=== PATIENT | female | born 1940 | race Caucasian/White ===

== ENCOUNTER 2018-02-03 19:12 | Emergency (ER) | payer OTHER, MEDICARE ==
[~2018-02-03] VITALS: Ht 160 cm; Wt 81.6 kg
[~2018-02-03 19:12] MED LIST: ALEVE220 MG PO; ASPIR 8181 MG PO; BENTYL20 MG PO; CIPRO 500MG TA500 MG PO; COLACE100 MG PO; CYCLOBENZAPRINE5 M2 PO; DIOVAN320 M1 PO; IBUPROFEN600 M1 PO; KEFLEX250 M1 PO; LEVOTHYROXINE0.15 M1 PO; MAGNESIUM400 M1 PO; OCUVITE ADULT 51 SGL PO; PEPCID20 M1 PO; POTASSIUM CHLO20 ME2 PO; SPIRONOLACTONE50 M1 PO; TRAMADOL HCL50 M1 PO; VALIUM5 M2 PO; VALSARTAN AND H1 TA1 PO; VALSARTAN80 M1 PO; VICODIN 5-3001 EACH PO; VICODIN 500 MG-1 TAB PO; VICODIN5-300 PO; VITAMIN B11000 MCG/M IM; VITAMIN D2000 UNI1 PO
--- NOTE | 2018-02-03 20:04 | ED GI/GU/ABDOMINAL COMPLAINT ---
History of Present Illness General Chief Complaint: Female Urogenital Problems Stated Complaint: "I HAVE UTI, OR BLADDER INFECTION" Source: patient, old records Exam Limitations: no limitations Vital Signs & Intake/Output Vital Signs & Intake/Output Vital Signs Date Time Temp Pulse Resp B/P B/P Pulse O2 O2 Flow FiO2 Mean Ox Delivery Rate 02/03 2109 98.9 80 18 146/76 97 Room Air 02/03 1929 99.9 99 20 164/83 95 Room Air Allergies Coded Allergies: Sulfa (Sulfonamide Antibiotics) (RASH 01/06/16) chlordiazepoxide (From Librium) (RASH TO PALMS 01/06/16) Uncoded Allergies: MRI (Intermediate, METAL STENTS 09/05/14) Reconcile Medications Amoxicillin 250 MG CAPSULE 1 CAP PO TID URINE INFECTION Aspirin (Ecotrin) 81 MG TABLET.DR 1 TAB PO DAILY HEART HEALTH (Reported) Cholecalciferol (Vitamin D3) (Vitamin D) (Unknown Strength) TABLET (Unknown Dose) PO DAILY SUPPLEMENT (Reported) CYANOCOBALAMIN (VITAMIN B-12) (Cyanocobalamin Injection) 1,000 MCG/ML VIAL 1 ML IM Q30D LOW VIT B12 (Reported) Cyclobenzaprine HCl 5 MG TABLET 1 TAB PO QPM PRN MUSCLE SPASMS (Reported) Docusate Sodium (Colace) 100 MG CAPSULE 1 CAP PO PRN CONSTIPATION (Reported) Levothyroxine Sodium 0.15 MG TAB 1 TAB PO DAILY AC HYPOTHYROID (Reported) Spironolactone 50 MG TABLET 1 TAB PO DAILY DIURETIC (Reported) Tramadol HCl 50 MG TABLET 1 TAB PO DAILY PRN PAIN (Reported) Valsartan 80 MG TABLET 1 TAB PO DAILY BP (Reported) VIT C/VIT E/LUTEIN/MIN/OMEGA-3 (Ocuvite Softgel) 150 MG-30 UNIT-5 MG-150 MG CAPSULE 1 SGL PO DAILY SUPPLEMENT (Reported) Triage Note: PT TO TRIAGE C/O DYSURIA, FREQUENCY X1 DAY. PER PT HX OF UTI. LOW GRADE TEMP IN TRIAGE 99.9. AWARE OF NEED FOR URINE SAMPLE. Triage Nurses Notes Reviewed? yes ? N Is pt currently ? No HPI: 2 days ago patient noticed that she was having right flank pain. The pain is crampy in nature. There is no radiation. She rates the pain as mild on the pain scale. The pain subsequently went away. Today she had an episode of urinary urgency and hematuria. Patient just kind of feels weak and fatigued. There are no fevers or chills. There is no nausea or vomiting. Past History Travel History Traveled to [place] past 21 day No Medical History Any Pertinent Medical History? see below for history Neurological: NONE EENT: NONE Cardiovascular: CHF, hypertension, 2 STENTS Respiratory: NONE Gastrointestinal: NONE Hepatic: NONE Renal: NONE Musculoskeletal: NONE Psychiatric: NONE Endocrine: hypothyroidism Blood Disorders: NONE Cancer(s): NONE Surgical History Surgical History: non-contributory Psychosocial History What is your primary language Luxembourgish Tobacco Use: Never used ETOH Use: denies use Illicit Drug Use: denies illicit drug use Family History Hx Contributory? No Review of Systems Review of Systems Constitutional: Reports: see HPI, weakness. EENTM: Reports: no symptoms. Respiratory: Reports: no symptoms. Cardiovascular: Reports: no symptoms. GI: Reports: no symptoms. Genitourinary: Reports: see HPI, hematuria, urgency. Musculoskeletal: Reports: see HPI, back pain. Skin: Reports: no symptoms. Neurological/Psychological: Reports: no symptoms. Hematologic/Endocrine: Reports: no symptoms. Immunologic/Allergic: Reports: no symptoms. All Other Systems: Reviewed and Negative Physical Exam Physical Exam General Appearance: well developed/nourished, alert, awake, mild distress Head: atraumatic, normal appearance Eyes: Bilateral: PERRL, EOMI. Ears, Nose, Throat, Mouth: hearing grossly normal, moist mucous membrane Neck: normal inspection, supple, full range of motion Respiratory: normal breath sounds, chest non-tender, no respiratory distress, lungs clear Cardiovascular: regular rate/rhythm, normal peripheral pulses Gastrointestinal: normal bowel sounds, soft, non-tender, no organomegaly Back: normal inspection, normal range of motion, NO CVA TENDERNESS Extremities: normal range of motion Neurologic/Psych: no motor/sensory deficits, awake, alert, oriented x 3, normal gait, normal mood/affect Skin: intact, normal color, warm/dry Core Measures ACS in differential dx? No Sepsis Present: No Sepsis Focused Exam Completed? No Progress Differential Diagnosis: UTI/pyelo Plan of Care: Orders Procedure Date/time Status CULTURE,URINE 02/03 2055 Active Add-on Test (ER Only) 02/03 2042 Active COMPREHENSIVE METABOLIC PANEL 02/04 2004 Complete CBC WITHOUT DIFFERENTIAL 02/04 2004 Complete URINALYSIS 02/03 1915 Complete Laboratory Tests 02/03/18 2014: Anion Gap 11, Estimated GFR > 60, BUN/Creatinine Ratio 25.7 H, Glucose 116 H, Calcium 10.2, Total Bilirubin 0.5, AST 17, ALT 32, Alkaline Phosphatase 96, Total Protein 7.3, Albumin 3.9, Globulin 3.4, Albumin/Globulin Ratio 1.1, CBC w Diff NO MAN DIFF REQ, RBC 4.22, MCV 90.4, MCH 29.9, MCHC 33.1, RDW 14.0, MPV 7.9 , Gran % 68.9, Lymphocytes % 20.7, Monocytes % 6.9, Eosinophils % 2.3, Basophils % 1.2, Absolute Granulocytes 5.2, Absolute Lymphocytes 1.6, Absolute Monocytes 0.5, Absolute Eosinophils 0.2, Absolute Basophils 0.1 02/03/181945: Urine Color YEL, Urine Clarity CLDY H, Urine pH 6.0, Ur Specific [place] >= 1.030, Urine Protein 30 H, Urine Ketones NEG, Urine Nitrite NEG, Urine Bilirubin NEG, Urine Urobilinogen 0.2, Ur Leukocyte Esterase MOD H, Ur Microscopic SEDIMENT EXAMINED, Urine RBC 25-50 H, Urine WBC 50-75 H, Ur Epithelial Cells FEW, Urine Bacteria MOD H, Urine Hemoglobin LARGE H, Urine Glucose NEG Microbiology 02/03 2055 URINE ROUT: Urine Culture - ORD Initial ED EKG: none Comments: Previous urine culture from 2016 showed group B strep. Penicillins are the treatment of choice for group B strep. Departure Departure Disposition: HOME OR SELF CARE Condition: Stable Clinical Impression Primary Impression: UTI (urinary tract infection) Referrals: Tamanna Scherer APRN (PCP/Family) Additional Instructions: TAKE AMOXIL 3 TIMES A DAY FOR 10 DAYS RETURN IF SYMPTOMS WORSEN OR FOR ANY CONCERNS Departure Forms: Customer Survey General Discharge Information Prescriptions: Current Visit Scripts Amoxicillin 1 CAP PO TID #30 CAP
[2018-02-03 20:30] LABS: ABSOLUTE BASOPHIL COUNT 0.1 /CUMM (0.0-0.2); ABSOLUTE EOSINOPHIL COUNT 0.2 /CUMM (0.0-0.7); ABSOLUTE GRANULOCYTE CT 5.2 /CUMM (1.4-6.5); ABSOLUTE LYMPH COUNT 1.6 /CUMM (1.2-3.4); ABSOLUTE MONOCYTE COUNT 0.5 /CUMM (0.10-0.60); BASOPHIL % 1.2 % (0.0-2.0); EOSINOPHIL % 2.3 % (0-5); GRANULOCYTE % 68.9 % (42.2-75.2); HEMATOCRIT 38.2 % (37-47); MEAN CORPUSCULAR HGB 29.9 PG (27.0-31.0); MEAN CORPUSCULAR HGB CONC 33.1 G/DL (33.0-37.0); MEAN CORPUSCULAR VOLUME 90.4 FL (81.0-99.0); MEAN PLATELET VOLUME 7.9 FL (7.4-10.4); PLATELET COUNT 243 /CUMM (130-400); RED BLOOD CELL CT 4.22 /CUMM (4.20-5.40); WHITE BLOOD CELL COUNT 7.6 /CUMM (4.8-10.8)
[2018-02-03] MEDS ORDERED: AMOXICILLIN250 M3 PO (21:02)
[2018-02-03 21:09] VITALS: BP 146/76
== END 2018-02-03 21:09 ==
LOC: ERH 19:12
PROVIDERS: Emergency Medicine
DX: N39.0 Urinary tract infection, site not specified (principal)
CPT/HCPCS: 81001; 87086